=== PATIENT | male | born 1960 | race Caucasian/White ===

== ENCOUNTER → 2016-09-24 | Outpatient (CLI) | payer OTHER ==
--- NOTE | 2016-09-24 17:07 | XR ---
Left calcaneus HISTORY: Fracture 2 views of the left calcaneus correlated to prior exam 15 August 2016 The calcaneal fracture is again noted and shows a similar finding to previous exam. No dislocation. D egenerative changes are present at the intertarsal joints. IMPRESSION: Stable findings. Posterior calcaneal fracture extending to the subtalar joint.
== END | disposition home or self-care (01) ==
LOC: RADXRMAIN 14:44
PROVIDERS: ATTEND Podiatrist Foot & Ankle Surgery
DX: S92.002A Unspecified fracture of left calcaneus, initial encounter for closed fracture (principal)

== ENCOUNTER 2017-01-23 16:00 | Emergency (ER) | payer OTHER ==
[2017-01-23 16:20] VITALS: BP 178/87; PULSE 90; RESP 20; TEMP 98.1
[2017-01-23] MEDS ORDERED: methylPREDNISolone SOD SUCCI 125 MG/2 ML VIAL IM STA (16:43)
[2017-01-23] MEDS ORDERED: diphenhydrAMINE 50 MG CAP PO STA (16:45)
--- NOTE | 2017-01-23 16:50 | ED ---
Skin/Abscess/FB HPI - General Chief complaint: Skin/Abscess/Foreign Body Stated complaint: Itchy Rash Time Seen by Provider: 01/23/17 16:39 Source: patient, RN notes reviewed Mode of arrival: ambulatory Limitations: no limitations - History of Present Illness Initial comments: 56-year-old male presents to the emergency department chief complaint of itchy rash to the legs and arms. Patient states he was in the with speaking and doing yard work and he developed a rash. Patient's concerned [employer]. Patient states he's been putting Neosporin on it with no improvement. He denies any fever chills cough cold runny nose. Patient states he also recently changed his detergent. Patient states she was concerned due to his continued symptoms he thought that he should be evaluated.Patient denies any recent fever , chills, shortness of breath, chest pain, back pain, abdominal pain, nausea vomiting, numbness or tingling, dysuria or hematuria, constipation or diarrhea, headaches or visual changes, or any other current symptoms. - Related Data Home Medications Medication Instructions Recorded Confirmed Ibuprofen [Motrin] 800 mg PO Q6HR PRN 06/07/16 06/07/16 Previous Rx's Medication Instructions Recorded Hydrocodone/Acetaminophen [[place] 1 each PO Q6HR PRN #20 tab 06/07/16 5-325] Calamine/Zinc Oxide Lotion 1 applic TOPICAL TID 10 Days 01/23/17 [Calamine Lotion] Famotidine [Pepcid] 20 mg PO BID #10 tablet 01/23/17 diphenhydrAMINE [Benadryl] 50 mg PO HS PRN #5 capsule 01/23/17 predniSONE 50 mg PO DAILY #7 tab 01/23/17 Allergies Allergy/AdvReac Type Severity Reaction Status Date / Time No Known Allergies Allergy Verified 01/23/17 16:20 Review of Systems ROS Statement: Those systems with pertinent positive or pertinent negative responses have been documented in the HPI. ROS Other: All systems not noted in ROS Statement are negative. Past Medical History Past Medical History: No Reported History History of Any Multi-Drug Resistant Organisms: None Reported Past Surgical History: Orthopedic Surgery Additional Past Surgical History / Comment(s): left leg Past Psychological History: No Psychological Hx Reported Smoking Status: Current every day smoker Past Alcohol Use History: Daily, Heavy Past Drug Use History: None Reported General Exam Limitations: no limitations General appearance: alert, in no apparent distress Head exam: Present: atraumatic ENT exam: Present: normal exam, mucous membranes moist Neck exam: Present: normal inspection. Absent: tenderness, meningismus, lymphadenopathy Respiratory exam: Present: normal lung sounds bilaterally. Absent: respiratory distress, wheezes, rales, rhonchi, stridor Cardiovascular Exam: Present: regular rate, normal rhythm, normal heart sounds. Absent: systolic murmur, diastolic murmur, rubs, gallop, clicks Neurological exam: Present: alert, oriented X3 Psychiatric exam: Present: normal affect, normal mood Skin exam: Present: warm, dry, other (She appears to have an erythematous raised rash to legs and arms. Consistent with dermatitis) Course Vital Signs 01/23/17 16:18 Temperature 98.1 F Pulse Rate 90 Respiratory 20 Rate Blood Pressure 178/87 O2 Sat by Pulse 98 Oximetry Medical Decision Making - Medical Decision Making 56-year-old male presents with a rash that is consistent for dermatitis. This time we'll start him on steroids we will give him Pepcid and Benadryl. Calamine lotion. We discussed follow-up return parameters. We discussed all patient's questions. He stated he understood and agreed with plan. He will be discharged. Disposition Clinical Impression: Contact dermatitis Disposition: HOME SELF-CARE Condition: Stable Instructions: Dermatitis (ED) Additional Instructions: Please use medication as discussed. Please follow up with family doctor if symptoms have not improved over the next two days. Please return to the emergency room if your symptoms increase or worsen or for any other concerns. Prescriptions: Calamine/Zinc Oxide Lotion [Calamine Lotion] 1 applic TOPICAL TID 10 Days diphenhydrAMINE [Benadryl] 50 mg PO HS PRN #5 capsule PRN Reason: Itching Famotidine [Pepcid] 20 mg PO BID #10 tablet predniSONE 50 mg PO DAILY #7 tab Referrals: Leah Kinney MD [Primary Care Provider] - 1-2 days Time of Disposition: 16:50
== END 2017-01-23 16:57 | disposition home or self-care (01) ==
LOC: EC 16:00
DX: L25.9 Unspecified contact dermatitis, unspecified cause (principal); F17.200 Nicotine dependence, unspecified, uncomplicated
CPT/HCPCS: 99282; 96372; J2930

== ENCOUNTER 2017-11-18 17:54 | Emergency (ER) | payer OTHER ==
[2017-11-18 18:09] VITALS: BP 187/88; PULSE 88; RESP 20; TEMP 97.9
[2017-11-18] MEDS ORDERED: predniSONE 50 MG TAB PO STA (18:26)
--- NOTE | 2017-11-18 18:35 | ED ---
Skin/Abscess/FB HPI - General Chief complaint: Skin/Abscess/Foreign Body Stated complaint: Rash on back Time Seen by Provider: 11/18/17 18:18 Source: patient, RN notes reviewed Mode of arrival: ambulatory Limitations: no limitations - History of Present Illness Initial comments: This is a 57-year-old male who presents to the emergency department with chief complaint of rash. Patient states that 4 days ago he developed a rash on his back. 2 days ago the rash spread to his upper extremities and abdomen. Patient denies any exposure to new soaps, laundry detergents or medications. Denies pain but does admit that rash is extremely pruritic. He states that he has been itching excessively. Denies history of MRSA. He states that he has not been taking any medication or applying anything topically for the rash. Denies fever, chills, chest pain, shortness of breath, abdominal pain, nausea or vomiting, constipation or diarrhea, numbness or tingling, headache or vision changes. - Related Data Home Medications Medication Instructions Recorded Confirmed Ibuprofen [Motrin] 300 mg PO Q8HR PRN 01/23/17 01/23/17 Neomycin/Bacitracin/Polymyxinb 1 applic TOPICAL DAILY PRN 01/23/17 01/23/17 [Neosporin Ointment] Previous Rx's Medication Instructions Recorded Calamine/Zinc Oxide Lotion 1 applic TOPICAL TID 10 Days ml 01/23/17 [Calamine Lotion] Famotidine [Pepcid] 20 mg PO BID #10 tablet 01/23/17 diphenhydrAMINE [Benadryl] 50 mg PO HS PRN #5 capsule 01/23/17 predniSONE 50 mg PO DAILY #7 tab 01/23/17 Sulfamethox-Tmp 800-160Mg [Bactrim 1 tab PO Q12HR #20 tab 11/18/17 DS 800-160 mg] predniSONE 20 mg PO DAILY #4 tab 11/18/17 Allergies Allergy/AdvReac Type Severity Reaction Status Date / Time No Known Allergies Allergy Verified 11/18/17 18:09 Review of Systems ROS Statement: Those systems with pertinent positive or pertinent negative responses have been documented in the HPI. ROS Other: All systems not noted in ROS Statement are negative. Past Medical History Past Medical History: No Reported History History of Any Multi-Drug Resistant Organisms: None Reported Past Surgical History: Orthopedic Surgery Additional Past Surgical History / Comment(s): left leg Past Psychological History: No Psychological Hx Reported Smoking Status: Current every day smoker Past Alcohol Use History: Daily, Heavy Past Drug Use History: None Reported General Exam - General Exam Comments Initial Comments: General: Awake and alert, well-developed; in no apparent distress. HEENT: Head atraumatic, normocephalic. Pupils are equal, round and reactive to light. Extraocular movements intact. Oropharynx moist without erythema or exudate. Neck: Supple. Normal ROM. Cardiovascular: Regular rate and rhythm. No murmurs, rubs or gallops. Chest symmetrical. Respiratory: Lungs clear to auscultation bilaterally. No wheezes, rales or rhonchi. Normal respiratory effort with no use of accessory muscles. Musculoskeletal: Normal ROM, no tenderness bilateral upper and lower extremities. Ambulating normally. Skin: [place], warm and dry. Scaly, erythematous maculopapular lesions that coalesce with overlying yellow crusting on back. Discrete maculopapular erythematous lesions trunk and bilateral upper extremities. Overlying excoriations noted. Neurological: Alert and oriented x3. CN II-XII grossly intact. Speech is fluent and answers are appropriate. No focal neuro deficits. Psychiatric: Normal mood and affect. No overt signs of depression or anxiety noted. Limitations: no limitations Course Vital Signs 11/18/17 18:07 Temperature 97.9 F Pulse Rate 88 Respiratory 20 Rate Blood Pressure 187/88 O2 Sat by Pulse 96 Oximetry Medical Decision Making - Medical Decision Making This is a 57-year-old male presenting to the emergency department for evaluation of rash. Patient developed an erythematous maculopapular rash to his back with spread to bilateral upper extremities and trunk over the past 4 days. Patient states that the rash is extremely pruritic. Overlying excoriations and yellow crusting is noted. Patient will be started on steroids and Bactrim for dermatitis and impetigo. Patient's vital signs are stable and he is in no acute distress. He will be discharged home. Patient is in agreement with plan and voices understanding. All questions were answered. Disposition Clinical Impression: Dermatitis, Impetigo Disposition: HOME SELF-CARE Condition: Good Instructions: Impetigo (ED), Dermatitis (ED) Additional Instructions: Please take medications as prescribed. Please follow up with primary care provider within 1-2 days. Return to emergency department if symptoms should worsen or any concerns arise. Prescriptions: predniSONE 20 mg PO DAILY #4 tab Sulfamethox-Tmp 800-160Mg [Bactrim DS 800-160 mg] 1 tab PO Q12HR #20 tab Referrals: Leah Kinney MD [Primary Care Provider] - 1-2 days Time of Disposition: 18:35
== END 2017-11-18 18:46 | disposition home or self-care (01) ==
LOC: EC 17:54
DX: L30.9 Dermatitis, unspecified (principal); L01.00 Impetigo, unspecified; F17.200 Nicotine dependence, unspecified, uncomplicated
CPT/HCPCS: 99282; J7512

== ENCOUNTER 2017-12-01 19:18 | Emergency (ER) | payer OTHER ==
[2017-12-01 19:29] VITALS: BP 134/85; PULSE 95; RESP 16; TEMP 97.4
--- NOTE | 2017-12-01 19:58 | ED ---
Skin/Abscess/FB HPI - General Chief complaint: Skin/Abscess/Foreign Body Stated complaint: Hives Time Seen by Provider: 12/01/17 19:33 Source: patient, RN notes reviewed, old records reviewed Mode of arrival: ambulatory Limitations: no limitations - History of Present Illness Initial comments: This patient is a 57 year old male presents with 3 weeks of pruritic rash over back, arms, and chest. He reports he was seen a few weeks ago, given a few days of steriods, and bactrim. He eports no improvement of the rash. Patient denies fevers or chills. He reports no new detergents, contacts or causes for this rash. He states that it is so pruritic, no recent benadryl. He has not been using any creams over it. - Related Data Home Medications Medication Instructions Recorded Confirmed Aspirin 325 mg PO QID PRN 11/18/17 12/01/17 Previous Rx's Medication Instructions Recorded Calamine/Zinc Oxide Lotion 1 applic TOPICAL BID #1 bottle 12/01/17 [Calamine Lotion] Famotidine [Pepcid] 20 mg PO BID #14 tablet 12/01/17 Triamcinolone 0.1% Lotion [Kenalog 1 applic TOPICAL QID #1 bottle 12/01/17 0.1% Lotion] diphenhydrAMINE [Benadryl] 25 mg PO TID PRN #20 capsule 12/01/17 predniSONE 50 mg PO DAILY #7 tablet 12/01/17 Allergies Allergy/AdvReac Type Severity Reaction Status Date / Time No Known Allergies Allergy Verified 12/01/17 19:52 Review of Systems ROS Statement: Those systems with pertinent positive or pertinent negative responses have been documented in the HPI. ROS Other: All systems not noted in ROS Statement are negative. Past Medical History Past Medical History: No Reported History History of Any Multi-Drug Resistant Organisms: None Reported Past Surgical History: Orthopedic Surgery Additional Past Surgical History / Comment(s): left leg Past Psychological History: No Psychological Hx Reported Smoking Status: Current every day smoker Past Alcohol Use History: Daily, Heavy Past Drug Use History: None Reported General Exam - General Exam Comments Initial Comments: This patient is a 57 year old male, appears older than stated age. Limitations: no limitations General appearance: alert, in no apparent distress Head exam: Present: atraumatic, normocephalic, normal inspection Eye exam: Present: normal appearance, PERRL, EOMI. Absent: scleral icterus, conjunctival injection, periorbital swelling ENT exam: Present: normal exam, mucous membranes moist Neck exam: Present: normal inspection. Absent: tenderness, meningismus, lymphadenopathy Respiratory exam: Present: normal lung sounds bilaterally. Absent: respiratory distress, wheezes, rales, rhonchi, stridor Cardiovascular Exam: Present: regular rate, normal rhythm, normal heart sounds. Absent: systolic murmur, diastolic murmur, rubs, gallop, clicks GI/Abdominal exam: Present: soft, normal bowel sounds. Absent: distended, tenderness, guarding, rebound, rigid Extremities exam: Present: normal inspection, full ROM, normal capillary refill. Absent: tenderness, pedal edema, joint swelling, calf tenderness Skin exam: Present: warm, dry, intact, normal color, rash (Raised, thickened, macular papular rash over back, arms, and legs. ) Course Vital Signs 12/01/17 19:24 Temperature 97.4 F L Pulse Rate 95 Respiratory 16 Rate Blood Pressure 134/85 O2 Sat by Pulse 97 Oximetry Medical Decision Making - Medical Decision Making This patient is a 57 year old male with CC of pruritic rash over back and arms for 3 weeks. Patient appears to have atopic dermatitis. Patient continues to scratch at the rash. It is worse over back, and he ahs some small areas over his arms and chest. At this time, will start patient on steriod cream, steriods , pepcid, benadryl for the pruritis. Discussed follow up with PCP and dermatology for possible biopsy. Disucssed return parameters. Disposition Clinical Impression: Dermatitis Disposition: HOME SELF-CARE Condition: Good Instructions: Contact Dermatitis (ED) Additional Instructions: Patient advised to follow-up with primary care provider. Take the medications as prescribed. Return to the emergency department if any alarming signs or symptoms occur. Also follow-up with dermatology. Prescriptions: Calamine/Zinc Oxide Lotion [Calamine Lotion] 1 applic TOPICAL BID #1 bottle diphenhydrAMINE [Benadryl] 25 mg PO TID PRN #20 capsule PRN Reason: Itching Famotidine [Pepcid] 20 mg PO BID #14 tablet predniSONE 50 mg PO DAILY #7 tablet Triamcinolone 0.1% Lotion [Kenalog 0.1% Lotion] 1 applic TOPICAL QID #1 bottle Referrals: Leah Kinney MD [Primary Care Provider] - 1-2 days Iwona Garcia MD [STAFF PHYSICIAN] - 1-2 days Time of Disposition: 19:54
== END 2017-12-01 20:06 | disposition home or self-care (01) ==
LOC: EC 19:18
DX: L30.9 Dermatitis, unspecified (principal); F17.200 Nicotine dependence, unspecified, uncomplicated
CPT/HCPCS: 99283

== ENCOUNTER 2018-01-03 15:46 | Emergency (ER) | payer OTHER ==
[2018-01-03 15:52] VITALS: BP 166/75; PULSE 102; RESP 18; TEMP 98.7
--- NOTE | 2018-01-03 16:22 | ED ---
General Adult HPI - General Chief complaint: Skin/Abscess/Foreign Body Stated complaint: RASH ON BACK Time Seen by Provider: 01/03/18 15:57 Source: patient, RN notes reviewed Mode of arrival: ambulatory Limitations: no limitations - History of Present Illness Initial comments: 57-year-old male presents to the emergency department for a chief complaint of rash times one month. Patient states the rash is very pruritic. He complaints of the rash being on his back abdomen upper arms and upper legs. Patient states the steroid lotion we gave him at the emergency department 3 weeks ago took it away but it came back. Patient denies any sores in his mouth. Patient denies any pain from the rash. He states he tried to get into the [facility] but they did not take his insurance. He did not follow-up with primary care but states he can do that. Patient denies fever cough congestion chest pain, abdominal pain, shortness of breath, nausea or vomiting, headache, or visual changes. - Related Data Home Medications Medication Instructions Recorded Confirmed Aspirin 325 mg PO QID PRN 11/18/17 12/01/17 Previous Rx's Medication Instructions Recorded Calamine/Zinc Oxide Lotion 1 applic TOPICAL BID #1 bottle 12/01/17 [Calamine Lotion] Famotidine [Pepcid] 20 mg PO BID #14 tablet 12/01/17 Triamcinolone 0.1% Lotion [Kenalog 1 applic TOPICAL QID #1 bottle 12/01/17 0.1% Lotion] diphenhydrAMINE [Benadryl] 25 mg PO TID PRN #20 capsule 12/01/17 predniSONE 50 mg PO DAILY #7 tablet 12/01/17 Cephalexin [Keflex] 500 mg PO Q12HR #14 cap 01/03/18 Cetirizine HCl [Zyrtec] 10 mg PO DAILY PRN #20 tab 01/03/18 Famotidine [Pepcid] 20 mg PO BID #20 tablet 01/03/18 Triamcinolone 0.1% Cream [Kenalog] 1 applicatio TOPICAL TID PRN #1 01/03/18 tube hydrOXYzine HCL [Atarax] 25 mg PO HS PRN #20 tab 01/03/18 predniSONE 50 mg PO DAILY #5 tablet 01/03/18 Allergies Allergy/AdvReac Type Severity Reaction Status Date / Time No Known Allergies Allergy Verified 01/03/18 15:52 Review of Systems ROS Statement: Those systems with pertinent positive or pertinent negative responses have been documented in the HPI. ROS Other: All systems not noted in ROS Statement are negative. Past Medical History Past Medical History: No Reported History History of Any Multi-Drug Resistant Organisms: None Reported Past Surgical History: Orthopedic Surgery Additional Past Surgical History / Comment(s): left leg Past Psychological History: No Psychological Hx Reported Smoking Status: Current every day smoker Past Alcohol Use History: Daily, Heavy Past Drug Use History: None Reported General Exam Limitations: no limitations General appearance: alert, in no apparent distress Head exam: Present: atraumatic, normocephalic, normal inspection ENT exam: Present: normal exam, normal oropharynx (Uvula midline. No lesions noted on the mucous membranes.), mucous membranes moist, TM's normal bilaterally Respiratory exam: Present: normal lung sounds bilaterally. Absent: respiratory distress, wheezes, rales, rhonchi, stridor Cardiovascular Exam: Present: regular rate, normal rhythm, normal heart sounds. Absent: systolic murmur, diastolic murmur, rubs, gallop, clicks Skin exam: Present: rash (Patient has an erythematous scaly rash noted on his upper back. Rash follows skin lines. Excoriations present. Patient also has a maculopapular rash on the abdomen of her arms and upper legs.) Course Vital Signs 01/03/18 15:50 Temperature 98.7 F Pulse Rate 102 H Respiratory 18 Rate Blood Pressure 166/75 O2 Sat by Pulse 99 Oximetry Medical Decision Making - Medical Decision Making 57-year-old male presents to the emergency department for chief complaint of rash times one month. Rash went away with triamcinolone cream but then returned. On exam the rash is diffuse across his upper back and is erythematous and scaling. He also has a rash on his abdomen and upper arms and upper legs. No fevers, negative Nikolsky sign. No lesions in the mouth or on the palms or soles. Patient states will be given a steroid shot in the emergency department. He will begin oral prednisone starting tomorrow. He will take Zyrtec during the day and Atarax at night for itching. He will take Keflex to prevent any infection. Use triamcinolone cream as directed. He was given referrals to to [facility] in the hopes that one except for the insurance. He will follow up with his primary care in 1-2 days regardless which he states he will be able to do. He will return if he has any worsening symptoms. Dr. Fountain also saw the patient. Disposition Clinical Impression: Rash Disposition: HOME SELF-CARE Condition: Good Instructions: Acute Rash (ED) Additional Instructions: For itching, take one Zyrtec when you wake up and take one Atarax at night. Take prednisone starting tomorrow. Take Pepcid and Keflex as directed. Use triamcinolone cream as directed as well. Return to the emergency department if you have any worsening symptoms, signs of infection or fever. Follow up with primary care in 1-2 days. Follow up with dermatology. Prescriptions: Cephalexin [Keflex] 500 mg PO Q12HR #14 cap Cetirizine HCl [Zyrtec] 10 mg PO DAILY PRN #20 tab PRN Reason: Itching Famotidine [Pepcid] 20 mg PO BID #20 tablet hydrOXYzine HCL [Atarax] 25 mg PO HS PRN #20 tab PRN Reason: Itching predniSONE 50 mg PO DAILY #5 tablet Triamcinolone 0.1% Cream [Kenalog] 1 applicatio TOPICAL TID PRN #1 tube PRN Reason: Rash Is patient prescribed a controlled substance at d/c from ED?: No Referrals: Leah Kinney MD [Primary Care Provider] - 1-2 days Iwona Garcia MD [STAFF PHYSICIAN] - 1-2 days Royce Martell MD [STAFF PHYSICIAN] - 1-2 days Time of Disposition: 16:51
[2018-01-03] MEDS ORDERED: methylPREDNISolone SOD SUCCI 125 MG/2 ML VIAL IM ONE (16:40)
== END 2018-01-03 16:58 | disposition home or self-care (01) ==
LOC: EC 15:46
DX: R21 Rash and other nonspecific skin eruption (principal); F17.200 Nicotine dependence, unspecified, uncomplicated
CPT/HCPCS: 99282; 96372; J2930

== ENCOUNTER 2018-01-14 13:22 | Emergency (ER) | payer OTHER ==
[2018-01-14 13:27] VITALS: BP 139/78; PULSE 86; RESP 20; TEMP 98
[2018-01-14] MEDS ORDERED: methylPREDNISolone SOD SUCCI 125 MG/2 ML VIAL IM ONE (14:06)
--- NOTE | 2018-01-14 14:06 | ED ---
General Adult HPI - General Chief complaint: Skin/Abscess/Foreign Body Stated complaint: Rash Time Seen by Provider: 01/14/18 13:43 Source: patient, RN notes reviewed Mode of arrival: ambulatory Limitations: no limitations - History of Present Illness Initial comments: 57-year-old male presents to the emergency department for a chief complaint of rash 2 days. Patient states it is on his chest and back and is itching. Patient states he has been here multiple times before and the medicines helped him but when he runs out it comes back. Patient states he has not followed up with a field hand because the referral we gave does not take his insurance. Patient states he has not followed up with his primary care doctor because he is in the process of switching doctors. Patient states he called [facility] in the gave him a field hand but the field hand but they did not take. Patient denies any fevers or chills at home. Patient denies any recent illnesses. Patient denies any urinary symptoms, cough, congestion, sore throat. Patient denies any peeling of the skin. Patient denies any pain and admits to itching. Patient has no other complaints at this time including shortness of breath, chest pain, abdominal pain, nausea or vomiting, headache, or visual changes. - Related Data Home Medications Medication Instructions Recorded Confirmed Aspirin 325 mg PO QID PRN 11/18/17 01/14/18 Previous Rx's Medication Instructions Recorded Calamine/Zinc Oxide Lotion 1 applic TOPICAL BID #1 bottle 12/01/17 [Calamine Lotion] Famotidine [Pepcid] 20 mg PO BID #14 tablet 12/01/17 diphenhydrAMINE [Benadryl] 25 mg PO TID PRN #20 capsule 12/01/17 Cetirizine HCl [Zyrtec] 10 mg PO DAILY PRN #20 tab 01/03/18 Triamcinolone 0.1% Cream [Kenalog] 1 applicatio TOPICAL TID PRN #1 01/03/18 tube Cetirizine HCl [Zyrtec] 10 mg PO DAILY PRN #20 tab 01/14/18 Triamcinolone 0.1% Cream [Kenalog] 1 applicatio TOPICAL TID #1 tube 01/14/18 hydrOXYzine HCL [Atarax] 25 mg PO TID PRN #20 tab 01/14/18 predniSONE 50 mg PO DAILY #5 tablet 01/14/18 Allergies Allergy/AdvReac Type Severity Reaction Status Date / Time No Known Allergies Allergy Verified 01/14/18 14:11 Review of Systems ROS Statement: Those systems with pertinent positive or pertinent negative responses have been documented in the HPI. ROS Other: All systems not noted in ROS Statement are negative. Past Medical History Past Medical History: No Reported History History of Any Multi-Drug Resistant Organisms: None Reported Past Surgical History: Orthopedic Surgery Additional Past Surgical History / Comment(s): left leg Past Psychological History: No Psychological Hx Reported Smoking Status: Current every day smoker Past Alcohol Use History: Daily, Heavy Past Drug Use History: None Reported General Exam Limitations: no limitations General appearance: alert, in no apparent distress ENT exam: Present: normal exam, normal oropharynx (No lesions on the mucous membranes), mucous membranes moist, TM's normal bilaterally Neck exam: Present: normal inspection, full ROM. Absent: tenderness, meningismus, lymphadenopathy Respiratory exam: Present: normal lung sounds bilaterally. Absent: respiratory distress, wheezes, rales, rhonchi, stridor Cardiovascular Exam: Present: regular rate, normal rhythm, normal heart sounds. Absent: systolic murmur, diastolic murmur, rubs, gallop, clicks Psychiatric exam: Present: normal affect (Patient is sitting up on the edge of the bed and alert.), normal mood Skin exam: Present: warm, dry, intact, rash (Patient has a rash on the chest and upper back. It is erythematous and plaque like in nature. It is also pleuritic. No excoriations noted. Negative Nikolsky sign. No signs of infection.) Course Vital Signs 01/14/18 13:24 Temperature 98.0 F Pulse Rate 86 Respiratory 20 Rate Blood Pressure 139/78 O2 Sat by Pulse 96 Oximetry Medical Decision Making - Medical Decision Making 57-year-old male presents to the emergency department for a chief complaint of rash 2 days. Patient has had a rash multiple times in the past and was seen here. Patient is given medications and it goes away. However when he runs out of his medications it always comes back. Patient has not followed up with dermatology. Patient was given steroids and antihistamines in the past which helped. Patient states a steroid shot also helps. On exam the rash is plaque leg on the upper chest and upper back. It is pruritic in nature. No signs of infection noted. No other complaints. Patient was given Zyrtec for the day and hydroxyzine at night. He was given a steroid shot in the emergency department as well as 5 days of prednisone and triamcinolone cream. He was told we will not be able to give him this again and that he needs to follow up with a field hand. He will call [facility] today for a dermatology consult. He will follow up with his primary if he cannot see a field hand. Disposition Clinical Impression: Rash Disposition: HOME SELF-CARE Condition: Good Instructions: Acute Rash (ED) Additional Instructions: Please take prescriptions as directed. Please follow up with field hand in 1 -2 days. Return to the emergency department if you have any worsening symptoms. Prescriptions: Cetirizine HCl [Zyrtec] 10 mg PO DAILY PRN #20 tab PRN Reason: Itching hydrOXYzine HCL [Atarax] 25 mg PO TID PRN #20 tab PRN Reason: Itching predniSONE 50 mg PO DAILY #5 tablet Triamcinolone 0.1% Cream [Kenalog] 1 applicatio TOPICAL TID #1 tube Is patient prescribed a controlled substance at d/c from ED?: No Referrals: Leah Kinney MD [Primary Care Provider] - 1-2 days Time of Disposition: 14:11
== END 2018-01-14 14:30 | disposition home or self-care (01) ==
LOC: EC 13:22
DX: R21 Rash and other nonspecific skin eruption (principal); F17.200 Nicotine dependence, unspecified, uncomplicated
CPT/HCPCS: 99282; 96372; J2930

== ENCOUNTER 2018-09-26 16:50 | Emergency (ER) | payer OTHER ==
[2018-09-27 04:47] LABS: INR 0.9 (<1.2); Partial Thromboplastin Time 22.9 sec (22.0-30.0); Prothrombin Time 9.7 sec (9.0-12.0)
[2018-09-27 08:53] LABS: HCT 39.9 % (39.0-53.0); HGB 13.6 gm/dL (13.0-17.5); MCH 34.3 pg (25.0-35.0); MCHC 34.2 g/dL (31.0-37.0); MCV 100.4 fL (80.0-100.0); Mean Platelet Volume 7.5; Platelet Count 249 k/uL (150-450); RBC 3.97 m/uL (4.30-5.90); RDW 13.8 % (11.5-15.5); WBC 10.1 k/uL (3.8-10.6)
[2018-09-27 10:21] LABS: Lymphocytes # (M) 2.53 k/uL (1.0-4.8); Monocytes # (M) 0.81 k/uL (0-1.0); Neutrophils # (M) 6.46 k/uL (1.3-7.7); Neutrophils % (M) 64 %; Nucleated Red Blood Cells 0 /100 WBC (0-0); Total Cells Counted 100
[2018-09-27 11:52] LABS: Creatine Kinase 111 U/L (55-170); Troponin I <0.012 ng/mL (0.000-0.034)
[2018-09-27 12:55] LABS: ALT 48 U/L (21-72); AST 52 U/L (17-59); Albumin 4.3 g/dL (3.5-5.0); Alkaline Phosphatase 70 U/L (38-126); Anion Gap 9 mmol/L; Blood Urea Nitrogen 9 mg/dL (9-20); Calcium 9.8 mg/dL (8.4-10.2); Carbon Dioxide 27 mmol/L (22-30); Chloride 96 mmol/L (98-107); Glucose 92 mg/dL (74-99); Potassium 3.9 mmol/L (3.5-5.1); Sodium 132 mmol/L (137-145); Total Bilirubin 0.6 mg/dL (0.2-1.3); Total Protein 7.5 g/dL (6.3-8.2)
== END 2018-09-26 20:12 | disposition home or self-care (01) ==
LOC: EC 16:50
DX: L23.9 Allergic contact dermatitis, unspecified cause (principal); F17.200 Nicotine dependence, unspecified, uncomplicated
CPT/HCPCS: 36415; 80053; 82550; 82553; 84484; 85025; 85610; 85730; 96374; 99283